=== PATIENT | female | born 1950 | race Caucasian/White ===

== ENCOUNTER → 2018-05-30 13:37 | Outpatient (CLI) | payer MEDICARE, OTHER, SELFPAY | PROVIDERS: Visit Provider Physician Assistant Medical | DX: M81.0 Age-related osteoporosis without current pathological fracture (principal); Z78.0 Asymptomatic menopausal state; E07.9 Disorder of thyroid, unspecified; Z82.62 Family history of osteoporosis; Z87.891 Personal history of nicotine dependence | CPT/HCPCS: 77080 ==

== ENCOUNTER → 2021-07-01 13:37 | Outpatient (CLI) | payer MEDICARE, OTHER, SELFPAY ==
[2021-07-01 19:25] LABS: TSH w/ Reflex to FT4 < 0.02 uIU/mL (0.47-4.68)
[2021-07-01 20:10] LABS: Free T4, Direct Thyroxine 1.71 ng/dL (0.78-2.19)
== END ==
PROVIDERS: PCP Family Medicine; Visit Provider Family Medicine
DX: E03.9 Hypothyroidism, unspecified (principal)
CPT/HCPCS: 84439; 84443

== ENCOUNTER → 2021-10-27 09:40 | Outpatient (CLI) | payer MEDICARE, OTHER, SELFPAY ==
[2021-10-27 23:43] LABS: Free T3, Triiodothyronine Free 9.41 pg/mL (2.77-5.27)
[2021-10-27 23:57] LABS: TSH w/ Reflex to FT4 < 0.02 uIU/mL (0.47-4.68)
[2021-10-28 00:33] LABS: Free T4, Direct Thyroxine 2.01 ng/dL (0.78-2.19)
== END ==
PROVIDERS: PCP Family Medicine; Visit Provider Physician Assistant
DX: E03.9 Hypothyroidism, unspecified (principal)
CPT/HCPCS: 84439; 84443; 84481

== ENCOUNTER → 2021-11-10 14:37 | Outpatient (CLI) | payer MEDICARE, OTHER, SELFPAY ==
[2021-11-10 19:56] LABS: BUN Creatinine Ratio 25.4 (6-22); Blood Urea Nitrogen 16 mg/dL (7-17); Calcium 9.3 mg/dL (8.4-10.2); Carbon Dioxide 29 mmol/L (22-32); Chloride 103 mmol/L (98-107); Estimated Glomerular Filt Rate > 60 mL/min (>60); Glucose 82 mg/dL (80-110); HEMOLYSIS < 15 (0-50); Potassium 4.1 mmol/L (3.4-5.1); Sodium 140 mmol/L (137-145)
[2021-11-10 20:18] LABS: Cortisol Random 5.51 ug/dL
[2021-11-12 20:13] LABS: Anti Thyroglobulin Antibody 32.3 IU/mL (0.0-0.9); Thyroid Peroxidase Antibodies 582 IU/mL (0-34)
== END ==
PROVIDERS: PCP Family Medicine; Visit Provider Family Medicine
DX: E03.9 Hypothyroidism, unspecified (principal); E05.90 Thyrotoxicosis, unspecified without thyrotoxic crisis or storm; I10 Essential (primary) hypertension
CPT/HCPCS: 80048; 82533; 86376; 86800

== ENCOUNTER → 2022-02-25 13:50 | Outpatient (CLI) | payer MEDICARE, OTHER, SELFPAY ==
[2022-02-25 21:29] LABS: TSH w/ Reflex to FT4 < 0.02 uIU/mL (0.47-4.68)
[2022-02-25 22:46] LABS: Free T3, Triiodothyronine Free 3.79 pg/mL (2.77-5.27); Free T4, Direct Thyroxine 1.35 ng/dL (0.78-2.19)
== END ==
PROVIDERS: PCP Family Medicine; Visit Provider Physician Assistant
DX: E03.9 Hypothyroidism, unspecified (principal)
CPT/HCPCS: 84439; 84443; 84481

== ENCOUNTER → 2022-09-22 11:10 | Outpatient (CLI) | payer MEDICARE, OTHER, SELFPAY ==
--- NOTE | 2022-09-22 11:19 | DI.DEXA.S_ITS ---
Bone Density Report Name: FELICIA TINAJERO Age: 72 Sex: Female Ethnicity: White Date of : 1950 Indication: postmenopausal osteoporosis; Referring Provider: GASTON RICKS Study: Bone densitometry was performed. Exam Date: September 22, 2022 Accession number: [id number] Bone Density: Region BMD T-score Z-score Classification AP Spine(L1-L4) 0.746 -2.7 -0.6 Osteoporosis Femoral Neck (Left) 0.533 -2.8 -1.0 Osteoporosis Total Hip (Left) 0.651 -2.4 -0.9 Osteopenia Femoral Neck (Right) 0.610 -2.2 -0.3 Osteopenia Total Hip (Right) 0.752 -1.6 0.0 Osteopenia Total Hip Mean 0.702 -2.0 -0.5 Osteopenia World Health Organization criteria for BMD impression classify patients as: Normal (T-score at or above -1.0), Osteopenia (T-score between -1.0 and -2.5), or Osteoporosis (T-score at or below -2.5). 10-year Fracture Risk: FRAX not reported because: Some T-score for Spine Total or Hip Total or Femoral Neck at or below -2.5 Previous Exams: -- Region Exam Age BMD T-score BMD Change BMD Change Date g/cm2 vs Baseline vs Previous -- AP Spine (L1-L4) 09/22/2022 72 0.746 -2.7 -0.028 (-3.6%)# -0.028 (-3.6%)# 05/30/2018 68 0.774 -2.5 Total Hip(Left) 09/22/2022 72 0.651 -2.4 0.006 (0.9%)# 0.006 (0.9%)# 05/30/2018 68 0.645 -2.4 Total Hip(Right) 09/22/2022 72 0.752 -1.6 0.045 (6.4%)# 0.045 (6.4%)# 05/30/2018 68 0.707 -1.9 -- *Denotes significance at 95% confidence level, LSC for AP Spine = 0.022 g/cm2, LSC for Total Hip = 0.027 g/cm2 # Denotes dissimilar scan types or analysis methods Impression: The patient has osteoporosis, based on the Left Femoral Neck T-score. No significant bone loss was observed. Discussion: INCREASED RISK OF FRACTURE. BONE DENSITY IS UNDESIRABLY LOW AT ONE OR MORE SKELETAL SITES, CONSISTENT WITH POSTMENOPAUSAL OSTEOPOROSIS. This patient's lowest T-score meets the World Health Organization's (WHO) criteria for osteoporosis at one or more sites (T-score -2.5 or below). In untreated patients, the risk of osteoporotic fracture increases approximately two-fold for each 1.0 SD decrease in T-score. Low bone density is not the only risk factor for fracture; also consider factors such as patient's age, frailty or poor health, risk of falling, risk of injury, previous osteoporotic fracture, family history of osteoporosis, cigarette smoking, low body weight, etc. Not everyone with low bone mineral density has osteoporosis; osteomalacia and other metabolic bone disorders should also be considered. Patients who have osteoporosis should be evaluated for specific diseases and conditions (secondary causes) that may cause or contribute to bone loss. The [place] [employer] (AACE) and National Osteoporosis Foundation (NOF) recommend pharmacologic intervention for all postmenopausal women whose T-score is in this range. The patient should follow a healthful lifestyle (good nutrition with adequate calcium and vitamin D, and appropriate weight-bearing exercise). Follow-Up: Consider a repeat BMD and Vertebral Fracture Assessment (VFA) exam in 2 years or sooner if medically necessary, to reassess this patient's status. Reported by: ALETA THOMPSON M.D. on 09/22/2022 11:26:00 AM.
== END ==
PROVIDERS: PCP Family Medicine; Referring Provider Family Medicine; Visit Provider Family Medicine
DX: M81.0 Age-related osteoporosis without current pathological fracture (principal); E03.9 Hypothyroidism, unspecified; R79.89 Other specified abnormal findings of blood chemistry; Z78.0 Asymptomatic menopausal state
CPT/HCPCS: 77080

== ENCOUNTER → 2022-10-01 11:49 | Outpatient (CLI) | payer MEDICARE, OTHER, SELFPAY ==
[2022-10-01 20:31] LABS: Thyroid Stimulating Hormone 0.205 uIU/mL (0.47-4.68)
[2022-10-01 23:22] LABS: Free T3, Triiodothyronine Free 5.04 pg/mL (2.77-5.27); Free T4, Direct Thyroxine 1.66 ng/dL (0.78-2.19)
== END ==
PROVIDERS: PCP Family Medicine; Visit Provider Family Medicine
DX: E03.9 Hypothyroidism, unspecified (principal); R79.89 Other specified abnormal findings of blood chemistry
CPT/HCPCS: 84439; 84443; 84481

== ENCOUNTER → 2023-02-09 09:35 | Outpatient (CLI) | payer MEDICARE, OTHER, SELFPAY ==
[2023-02-09 19:18] LABS: Add Manual Diff / Slide Review NO; Basophils Absolute Auto 100 /uL (0-100); Basophils Percent Auto 1.2 % (0-2); Eosinophils Absolute Auto 200 /uL (0-450); Eosinophils Percent Auto 3.5 % (2-4); Hematocrit 42.6 % (36-46); Hemoglobin 14.6 g/dL (12.0-16.0); Lymphocytes Absolute Auto 2200 /uL (1100-4500); Lymphocytes Percent Auto 45.4 % (25-40); Mean Corpuscular HGB Conc 34.3 % (30-36); Mean Corpuscular Hemoglobin 29.5 PG (26-34); Mean Corpuscular Volume 86.1 fL (80-100); Monocytes Absolute Auto 300 /uL (0-900); Monocytes Percent Auto 6.8 % (3-14); Neutrophils Absolute Auto 2100 /uL (1500-7000); Neutrophils Percent Auto 43.1 % (50-75); Platelet Count 221 X10^3/uL (150-400); Red Blood Cell Count 4.94 X10^6/uL (4.0-5.2); Red Cell Distribution Width 13.3 % (11.6-14.8); White Blood Cell Count 4.8 X10^3/uL (4.5-11.0)
[2023-02-09 19:26] LABS: Alanine Aminotransferase 28 IU/L (<35); Albumin 4.1 g/dL (3.5-5.0); Albumin Globulin Ratio 1.2 (1.0-2.8); Alkaline Phosphatase 58 U/L (38-126); Aspartate Aminotransferase 32 IU/L (14-36); Bilirubin Total 0.9 mg/dL (0.2-1.3); Bilirubin Unconjugated 0.5 mg/dL (0.0-1.1); Globulin 3.3 g/dL (1.7-4.1); HEMOLYSIS < 15 (0-50); Total Protein 7.4 g/dL (6.3-8.2)
[2023-02-09 19:33] LABS: Alanine Aminotransferase 27 IU/L (<35); Albumin 4.2 g/dL (3.5-5.0); Albumin Globulin Ratio 1.3 (1.0-2.8); Alkaline Phosphatase 58 U/L (38-126); Aspartate Aminotransferase 34 IU/L (14-36); BUN Creatinine Ratio 19.2 (6-22); Bilirubin Total 0.9 mg/dL (0.2-1.3); Blood Urea Nitrogen 14 mg/dL (7-17); Calcium 9.9 mg/dL (8.4-10.2); Carbon Dioxide 27 mmol/L (22-32); Chloride 105 mmol/L (98-107); Cholesterol 226 mg/dL (140-199); Estimated Glomerular Filt Rate > 60 mL/min (>60); Globulin 3.3 g/dL (1.7-4.1); Glucose 92 mg/dL (80-110); HDL Cholesterol 96 mg/dL (40-60); HEMOLYSIS 15 (0-50); LDL Cholesterol Calculated 111 mg/dL (<100); Potassium 4.1 mmol/L (3.4-5.1); Sodium 138 mmol/L (137-145); Total Protein 7.5 g/dL (6.3-8.2); Triglycerides 93 mg/dL (35-150)
[2023-02-09 19:43] LABS: Free T3, Triiodothyronine Free 4.39 pg/mL (2.77-5.27); Free T4, Direct Thyroxine 2.13 ng/dL (0.78-2.19)
[2023-02-09 19:56] LABS: Thyroid Stimulating Hormone 0.015 uIU/mL (0.47-4.68)
== END ==
PROVIDERS: Dermatology; PCP Family Medicine; Visit Provider Family Medicine
DX: I10 Essential (primary) hypertension (principal); R79.89 Other specified abnormal findings of blood chemistry; E03.9 Hypothyroidism, unspecified; B35.1 Tinea unguium
CPT/HCPCS: 80053; 80061; 80076; 84439; 84443; 84481; 85025

== ENCOUNTER → 2023-08-03 11:29 | Outpatient (CLI) | payer MEDICARE, OTHER, SELFPAY ==
[2023-08-03 20:56] LABS: Free T3, Triiodothyronine Free 3.58 pg/mL (2.77-5.27); Free T4, Direct Thyroxine 1.34 ng/dL (0.78-2.19)
[2023-08-03 21:10] LABS: Thyroid Stimulating Hormone 0.032 uIU/mL (0.47-4.68)
[2023-08-05 00:07] LABS: Thyroid Peroxidase Antibodies 379 IU/mL (0-34)
== END ==
PROVIDERS: PCP Family Medicine; Visit Provider Family Medicine
DX: E03.9 Hypothyroidism, unspecified (principal)
CPT/HCPCS: 84439; 84443; 84481; 86376

== ENCOUNTER → 2024-01-31 09:29 | Outpatient (CLI) | payer MEDICARE, OTHER, SELFPAY ==
[2024-01-31 18:53] LABS: Basophils Absolute Auto 0 /uL (0-100); Basophils Percent Auto 0.8 % (0-2); Eosinophils Absolute Auto 100 /uL (0-450); Eosinophils Percent Auto 2.3 % (2-4); Hematocrit 43.2 % (36-46); Hemoglobin 14.2 g/dL (12.0-16.0); Lymphocytes Absolute Auto 1800 /uL (1100-4500); Lymphocytes Percent Auto 45.4 % (25-40); Mean Corpuscular HGB Conc 32.8 % (30-36); Mean Corpuscular Hemoglobin 29.6 PG (26-34); Mean Corpuscular Volume 90.1 fL (80-100); Monocytes Absolute Auto 300 /uL (0-900); Monocytes Percent Auto 7.2 % (3-14); Neutrophils Absolute Auto 1800 /uL (1500-7000); Neutrophils Percent Auto 44.3 % (50-75); Platelet Count 210 X10^3/uL (150-400); Red Cell Distribution Width 12.7 % (11.6-14.8)
[2024-01-31 18:56] LABS: Alanine Aminotransferase 26 IU/L (<35); Albumin 3.9 g/dL (3.5-5.0); Albumin Globulin Ratio 1.3 (1.0-2.8); Alkaline Phosphatase 42 U/L (38-126); Aspartate Aminotransferase 36 IU/L (14-36); BUN Creatinine Ratio 15.5 (6-22); Bilirubin Total 0.8 mg/dL (0.2-1.3); Blood Urea Nitrogen 11 mg/dL (7-17); Calcium 9.7 mg/dL (8.4-10.2); Carbon Dioxide 32 mmol/L (22-32); Chloride 103 mmol/L (98-107); Cholesterol 195 mg/dL (140-199); Estimated Glomerular Filt Rate > 60 mL/min (>60); Globulin 3.1 g/dL (1.7-4.1); Glucose 95 mg/dL (80-110); HDL Cholesterol 97 mg/dL (40-60); HEMOLYSIS 17 (0-50); LDL Cholesterol Calculated 78 mg/dL (<100); Potassium 4.2 mmol/L (3.4-5.1); Sodium 137 mmol/L (137-145); Triglycerides 101 mg/dL (35-150)
[2024-01-31 18:58] LABS: Add Manual Diff / Slide Review SLIDE REVIEW
[2024-01-31 19:09] LABS: Vitamin D 25 Hydroxy (D3) 81.9 ng/mL (30.0-100.0)
[2024-01-31 19:24] LABS: Thyroid Stimulating Hormone < 0.015 uIU/mL (0.47-4.68)
[2024-01-31 19:33] LABS: RBC Morphology Normal Morphology
[2024-02-02 23:09] LABS: Thyroid Peroxidase Antibodies 418 IU/mL (0-34)
== END ==
PROVIDERS: PCP Family Medicine; Visit Provider Family Medicine
DX: I10 Essential (primary) hypertension (principal); M81.0 Age-related osteoporosis without current pathological fracture; E03.9 Hypothyroidism, unspecified; E78.2 Mixed hyperlipidemia
CPT/HCPCS: 80053; 80061; 82306; 84439; 84443; 84481; 85025; 86376

== ENCOUNTER → 2024-06-13 11:29 | Outpatient (CLI) | payer MEDICARE, OTHER, SELFPAY ==
[2024-06-13 19:30] LABS: Free T3, Triiodothyronine Free 5.47 pg/mL (2.77-5.27); Free T4, Direct Thyroxine 2.17 ng/dL (0.78-2.19)
[2024-06-13 19:46] LABS: Thyroid Stimulating Hormone < 0.015 uIU/mL (0.47-4.68)
[2024-06-15 06:36] LABS: Triiodothyronine T3 Total 238 ng/dL (71-180)
[2024-06-15 17:36] LABS: Anti Thyroglobulin Antibody 16.5 IU/mL (0.0-0.9); Thyroid Peroxidase Antibodies 386 IU/mL (0-34)
== END ==
PROVIDERS: PCP Family Medicine; Visit Provider Family Medicine
DX: E03.9 Hypothyroidism, unspecified (principal); R79.89 Other specified abnormal findings of blood chemistry
CPT/HCPCS: 84439; 84443; 84480; 84481; 86376; 86800

== ENCOUNTER → 2024-09-11 11:31 | Outpatient (CLI) | payer MEDICARE, OTHER, SELFPAY ==
[2024-09-11 19:48] LABS: Free T3, Triiodothyronine Free 4.97 pg/mL (2.77-5.27)
[2024-09-11 20:03] LABS: Thyroid Stimulating Hormone < 0.015 uIU/mL (0.47-4.68)
== END ==
PROVIDERS: PCP Family Medicine; Visit Provider Family Medicine
DX: E03.9 Hypothyroidism, unspecified (principal); R79.89 Other specified abnormal findings of blood chemistry
CPT/HCPCS: 84443; 84480; 84481

== ENCOUNTER → 2024-12-07 12:36 | Outpatient (CLI) | payer MEDICARE, OTHER, SELFPAY ==
--- NOTE | 2024-12-07 12:38 | DI.US.S_ITS ---
PROCEDURE: US THYROID INDICATIONS: HISTORY OF THYROID NODULE APPROXIMATELY 20 YEARS AGO TECHNIQUE: Real-time scanning was performed of the thyroid gland, with image documentation. COMPARISON: None. FINDINGS: Thyroid: Right lobe measures 4.7 x 1.9 x 1.5 cm. Left lobe measures 4.3 x 1 x 7 x 1.2 cm. Isthmus is 0.2 cm thick. Echotexture is homogeneous. Nodule number: 1 Location: Left mid Size: 1.1 x 0.5 x 0.6 cm. Composition: Solid Echogenicity: Hypoechoic Shape: wider than tall. Margins: Smooth Echogenic foci: Non Total points: 4 ACR TI-RADS category: 4 IMPRESSION: Nodule 1 is considered category 4. Secondary to size, interval imaging follow-up is recommended as below. ACR TI-RADS definitions and recommendations: TI-RADS 1 (benign): 0 points. FNA not needed. TI-RADS 2 (not suspicious): 2 points. FNA not needed. TI-RADS 3: 3 points. * FNA if 2.5 cm or larger, follow up if 1.5 cm or larger (at 1, 3, and 5 years). TI-RADS 4: 4-6 points. * FNA if 1.5 cm or larger, follow up if 1 cm or larger (at 1, 2, 3, and 5 years). TI-RADS 5: 7 points or more. * FNA if 1 cm or larger, follow up if 0.5 cm or larger (every year for 5 years). Dictated by: Marisela Couch M.D. on 12/08/2024 at 15:16 Approved by: Marisela Couch M.D. on 12/08/2024 at 15:17
--- NOTE | 2024-12-07 12:38 | DI.RAD.S_ITS ---
PROCEDURE: XR DEXA AXIAL SKELETON INDICATIONS: osteoporosis, bisphosphonates 2 yrs COMPARISON: [facility], , XR DEXA AXIAL SKELETON, 09/22/2022, 11:19. [facility], CR, XR DEXA AXIAL SKELETON, 05/30/2018, 14:17. FINDINGS: Lumbar Spine: Bone mineral density 0.787 g/cm2, T score -2.4, increased by 5.5%. Left Femoral Neck: Bone mineral density 0.556 g/cm2, T score -2.6. Left Hip: Bone mineral density 0.662 g/cm2, T score -2.3, no significant change compared to prior. Fracture Risk Calculation (when applicable): 10-year fracture risk of a major osteoporotic fracture 16 percent and of a hip fracture 4.5 percent. (T score greater or equal to -1.0 to: NORMAL) (T score from -1.1 to -2.4: OSTEOPENIA) (T score less than or equal to -2.5: OSTEOPOROSIS) IMPRESSION: Osteoporosis by WHO classification. Follow-up guidelines as follows: Osteoporosis: Consider a repeat DEXA and Vertebral Fracture Assessment (VFA) exam in 2 years or sooner if medically necessary, to reassess this patient's status. Osteopenia: Consider a repeat DEXA in 2-3 years to reassess this patient's status, or if there is a new clinical indication. Normal: Consider a repeat DEXA in 5 years or sooner, or if there is a new clinical indication. All treatment decisions require clinical judgment and consideration of individual patient factors, including patient preferences, comorbidities, previous drug use, risk factors not captured in the FRAX model (e.g., frailty, falls, vitamin D deficiency, increased bone turnover, interval significant decline in bone density ) and possible under- or over-estimation of fracture risk by FRAX. In addition, the NOF Guide recommends that FDA-approved medical therapies be considered in postmenopausal women and men age >= 50 years with a: * Hip or vertebral (clinical or morphometric) fracture * T-score of <=-2.5 at the spine or hip * Ten-year fracture probability by FRAX of >= 3% for hip fracture or >=20% for major osteoporotic fracture. Dictated by: Arvin Lerner M.D. on 12/08/2024 at 15:13 Approved by: Arvin Lerner M.D. on 12/08/2024 at 15:13
== END ==
LOC: US 12:37
PROVIDERS: PCP Family Medicine; Referring Provider Family Medicine; Visit Provider Family Medicine
DX: M81.0 Age-related osteoporosis without current pathological fracture (principal); E04.1 Nontoxic single thyroid nodule; I10 Essential (primary) hypertension; E03.9 Hypothyroidism, unspecified; R79.89 Other specified abnormal findings of blood chemistry; Z86.39 Personal history of other endocrine, nutritional and metabolic disease; Z78.0 Asymptomatic menopausal state
CPT/HCPCS: 76536; 77080